=== PATIENT | female | born 1995 | race Caucasian/White ===

== ENCOUNTER 2021-05-28 16:45 | Emergency (ER) | payer MEDICAID ==
[2021-05-28 18:38] LABS: CORONAVIRUS COVID-19 NAA NEGATIVE (NEGATIVE)
== END 2021-05-28 19:30 | disposition home or self-care (01) ==
LOC: JP.ED 16:45
DX: O99.513 Diseases of the respiratory system complicating pregnancy, third trimester (principal); J10.1 Influenza due to other identified influenza virus with other respiratory manifestations; Z20.822 Contact with and (suspected) exposure to COVID-19; Z3A.31 31 weeks gestation of pregnancy
CPT/HCPCS: 0241U; 36415; 80053; 85025; 99284; 99283